=== PATIENT | male | born 1935 | race Caucasian/White ===

== ENCOUNTER 2020-07-01 16:56 | Emergency (ER) | payer BC ==
[~2020-07-01] VITALS: Ht 182.9 cm; Wt 86.2 kg
[2020-07-01 16:56] VITALS: BP_SYST 170
--- NOTE | 2020-07-01 16:56 | NUR ---
DR RENAE OUT TO CAR UPON ARRIVAL TO EVALUATE
--- NOTE | 2020-07-01 16:56 | NUR ---
ASSISTED OUT OF CAR TO WHEELCHAIR AND IMMEDIATELY BROUGHT INTO ROOM #3
--- NOTE | 2020-07-01 17:00 | NUR ---
CODE STROKE CALLED. ALL STAFF AT BEDSIDE
--- NOTE | 2020-07-01 17:05 | NUR ---
STATES THAT AT ABOUT 1400 PT SLIPPED OFFBED ONTO BEDROOM FLOOR AND COULD NOT GET UP, WEAK TO LEFT SIDE OF BODY. THEN AT 1600 PT WENT TO RESTROOM AND LOST BALANCE, ASSISTED UP BY FAMILY. PT STATES HE NOW CAN USE HIS LEFT ARM BUT STILL UNABLE TO USE HIS LEFT LEG. PT IS ALERT AND ORIENTED.
--- NOTE | 2020-07-01 17:15 | NUR ---
PT TO CT SCAN VIA [facility]
[2020-07-01 17:20] LABS: BASOPHILS # (AUTO) 0.1 K/uL (0.0-0.2); BASOPHILS % (AUTO) 1.3 % (0.0-2.0); EOSINOPHILS # (AUTO) 0.3 K/uL (0.0-0.4); EOSINOPHILS % (AUTO) 3.1 % (0.0-4.0); HEMOGLOBIN 16.7 g/dL (14.0-18.0); MEAN CORPUSCULAR HEMOGLOBIN 31 pg (27-31); MEAN CORPUSCULAR HGB CONC 34 % (32-36); MEAN CORPUSCULAR VOLUME 91 fL (79.0-98.0); MONOCYTES % (AUTO) 10.2 % (1.7-9.3); NEUTROPHILS # (AUTO) 6.5 K/uL (1.8-7.7); NEUTROPHILS % (AUTO) 65.4 % (40.0-70.0); PLATELET COUNT (AUTO) 297 K/uL (130-430); RED BLOOD CELL COUNT(AUTO) 5.39 MIL/uL (4.2-6.2)
--- NOTE | 2020-07-01 17:20 | NUR ---
PT BACK TO BED [address] SCAN, RE-ATTACHED TO MONITORS.
--- NOTE | 2020-07-01 17:30 | NUR ---
PORTABLE CXR DONE AT BEDSIDE
[2020-07-01 17:37] LABS: ANION GAP 8 (5-15); CALCIUM 8.6 mg/dL (8.4-11.0); CHLORIDE 105 mmol/L (98-107); CREATININE 1.19 mg/dL (0.55-1.30); GLUCOSE 150 mg/dL (70-99); POTASSIUM 4.1 mmol/L (3.5-5.1); SODIUM SERUM 138 mmol/L (136-145); UREA NITROGEN, BLOOD 18 mg/dL (8-21)
[2020-07-01 17:43] LABS: ALANINE AMINOTRANSFERASE 30 U/L (12-78); ALBUMIN 3.7 g/dL (3.4-4.8); ASPARTATE AMINOTRANSFERASE 10 U/L (10-37); TOTAL BILIRUBIN 0.3 mg/dL (0.0-1.0)
--- NOTE | 2020-07-01 18:02 | NUR ---
NEURO TELEMED CONSULT COMPLETED, DR. RENAE AWARE OF FURTHER RECOMMENDATION
--- NOTE | 2020-07-01 18:15 | NUR ---
CT CONTRAST CONSENT SIGNED BY PT
[2020-07-01] MEDS ORDERED: IOHEXOL 350 mgI/mL, 150 ML INFUS..BTL IV ONE (18:18)
[2020-07-01 18:23] LABS: BILIRUBIN,URINE NEGATIVE (NEGATIVE); BLOOD, URINE 1+ (NEGATIVE); CLARITY/URINE CLEAR (CLEAR); COLOR,URINE YELLOW (YELLOW); GLUCOSE,URINE NEGATIVE (NEGATIVE); KETONES,URINE NEGATIVE (NEGATIVE); LEUKOCYTE ESTERASE ,URINE NEGATIVE (NEGATIVE); NITRITE, URINE NEGATIVE (NEGATIVE); PH,URINE 5.5 (5.0-8.0); PROTEIN URINE 1+ (NEGATIVE); UROBILINOGEN,URINE 0.2 (0.2-1.0)
--- NOTE | 2020-07-01 18:45 | NUR ---
PT TO CT SCAN BY FRANCISCA
--- NOTE | 2020-07-01 18:50 | NUR ---
PT BACK FROM CT SCAN ATTACHED TO MONITOR. PT AWAITING CT RESULTS
[2020-07-01] MEDS ORDERED: ASPIRIN 81 MG TAB.CHEW PO ONE (19:00)
[2020-07-01] MEDS ORDERED: ASPIRIN 81 MG TAB.CHEW ONE (19:02)
--- NOTE | 2020-07-01 19:05 | NUR ---
REPORT GIVEN TO AGUSTIN BOOTH WHO WILL ASSUME CARE
[2020-07-01 19:09] LABS: BACTERIA,URINE RARE /HPF (None Seen); MUCUS,URINE None Seen /LPF (None Seen); RBC,URINE 0-3 /HPF (0-3); WBC,URINE 0-3 /HPF (0-3)
--- NOTE | 2020-07-01 19:23 | NUR ---
Assisted patient to use urinal by EMT .
--- NOTE | 2020-07-01 20:46 | NUR ---
Patient spoke with AGUSTIN Che, refused to stay in the hospital.
--- NOTE | 2020-07-01 21:35 | NUR ---
Dr. Page spoke with patient for treatment plan.
[2020-07-01 22:09] VITALS: BP_SYST 150
--- NOTE | 2020-07-01 22:09 | NUR ---
Patient does not wish to proceed with medical care recommended by Dr. Page. Patient given information related to possible complications, up to and including , which could occur as a result of leaving hospital at this time. Patient verbalizes understanding of risks involved leaving against medical advice. Patient has signed AMA form.
== END 2020-07-01 22:09 | disposition left against medical advice (07) ==
LOC: SED 16:56
DX: I63.9 Cerebral infarction, unspecified (principal); Z86.79 Personal history of other diseases of the circulatory system
CPT/HCPCS: 36415; 70450; 70496; 70498; 71045; 76376; 80053; 81000; 84484; 85025; 85610; 85730; 86886; 86900; 86901; 93005; 99291; Q9967